=== PATIENT | male | born 1995 | race Hispanic/Latino ===

== ENCOUNTER 2019-03-25 23:05 | Emergency (ER) | payer MEDICAID, OTHER ==
[~2019-03-25 23:05] MED LIST: TRAM-355 PO
[2019-03-26] MEDS ORDERED: KETOROLAC TROMETHAMINE 60 MG/2 ML VIAL ONE (01:03)
== END 2019-03-26 01:29 | disposition home or self-care (01) ==
LOC: EDH 23:05
DX: S39.012A Strain of muscle, fascia and tendon of lower back, initial encounter (principal); Z72.0 Tobacco use; Z90.49 Acquired absence of other specified parts of digestive tract; X50.1XXA Overexertion from prolonged static or awkward postures, initial encounter; Y93.89 Activity, other specified; Y92.89 Other specified places as the place of occurrence of the external cause; Y99.8 Other external cause status
CPT/HCPCS: 96372; 99283; J1885

== ENCOUNTER 2023-09-25 02:29 | Emergency (ER) | payer BC, OTHER ==
[~2023-09-25] VITALS: Ht 170.2 cm; Wt 89.4 kg
[2023-09-25] MEDS ORDERED: AMOX-427 PO (04:55)
[2023-09-25] MEDS: AMOX/CLAV 875/125MG TAB PO ONE ×2 (04:56)
[2023-09-25 05:12] VITALS: BP 128/74; PULSE 79; RESP 17; O2SAT 98
== END 2023-09-25 05:12 | disposition home or self-care (01) ==
LOC: EDH 02:29
DX: H60.91 Unspecified otitis externa, right ear (principal); Z90.49 Acquired absence of other specified parts of digestive tract